=== PATIENT | female | born 1985 | race Caucasian/White ===

== ENCOUNTER → 2023-11-10 | Outpatient (CLI) | payer MEDICAID | END | disposition home or self-care (01) | LOC: RAD 12:57 | PROVIDERS: ATTEND Nurse Practitioner Family | DX: N85.9 Noninflammatory disorder of uterus, unspecified (principal); N92.6 Irregular menstruation, unspecified; R10.30 Lower abdominal pain, unspecified; Z00.01 Encounter for general adult medical examination with abnormal findings | CPT/HCPCS: 76830; 76856; 93976 ==